=== PATIENT | male | born 1970 | race African-American/Black ===

== ENCOUNTER 2018-07-17 19:49 | Emergency (ER) | payer OTHER ==
[~2018-07-17] VITALS: Ht 198.1 cm; Wt 124.3 kg
[2018-07-17 21:40] LABS: HEMOGLOBIN 14.9 G/DL (12.5-16.6); MCH 29.2 PG (29.0-34.0); MCHC 34.7 G/DL (30.0-36.0); MCV 84.3 FL (86-99); PLATELET COUNT 231 K/uL (156-360); RBC DIS.WIDTH-CV 12.6 % (11.8-14.6); RBC DIS.WIDTH-SD 38.5 % (39-53); WHITE BLOOD COUNT 6.5 K/uL (4.1-10.2)
[2018-07-17 21:51] LABS: CHLORIDE 110 mEq/L (99-109); POTASSIUM 4.2 mEq/L (3.7-5.4); SODIUM 143 mEq/L (136-147)
[2018-07-17 21:53] LABS: GLUCOSE 102 mg/dL (70-99)
[2018-07-17 21:57] LABS: CREATININE 1.3 mg/dL (0.6-1.3); GFR ESTIMATE (CALCULATED) > 59 mL/min/ (58.99-99999)
[2018-07-17 21:58] LABS: UREA NITROGEN (BUN) 19 mg/dL (9-23)
[2018-07-17 22:51] VITALS: BP 127/69
== END 2018-07-17 22:51 | disposition home or self-care (01) ==
LOC: EME 19:49
PROVIDERS: Physician Assistant
DX: R51 Headache (principal); E78.5 Hyperlipidemia, unspecified
CPT/HCPCS: 70450; 80048; 85027; 99281; 99285; J0780; J1200; J1885; J7030